=== PATIENT | female | born 1935 | race Two or more races ===

== ENCOUNTER 2018-08-29 21:50 | Inpatient (IN) | payer MEDICARE, MEDICAID ==
[~2018-08-29] VITALS: Ht 165.1 cm; Wt 67.7 kg
--- NOTE | 2018-08-29 22:10 | NUR ---
ED Nurse Note: Patient has back right flank pain for 1 week. Pt AO4. NAD. VSS. family at bedside.
[2018-08-29] MEDS ORDERED: LOSARTAN POTAS100 MG ORAL (22:17)
[2018-08-29] MEDS ORDERED: EMPAGLIFLOZIN (22:17)
[2018-08-29] MEDS ORDERED: JANUMET XR 50-1 EAC1 ORAL (22:17)
[2018-08-29] MEDS ORDERED: PLAVIX75 MG ORAL (22:17)
[2018-08-29] MEDS ORDERED: NEURONTIN300 MG ORAL (22:17)
[2018-08-29] MEDS ORDERED: ATORVASTATIN CA40 MG ORAL (22:17)
[2018-08-29] MEDS ORDERED: MAGNESIUM250 M3 PO (22:17)
[2018-08-29] MEDS ORDERED: DIOVAN320 MG ORAL (22:17)
[2018-08-29] MEDS ORDERED: AMLODIPINE BES2.5 MG ORAL (22:17)
--- NOTE | 2018-08-29 22:53 | NUR ---
ED Nurse Note: IV line access established. Blood drawn and urine collected; sent down to lab.
[2018-08-29] MEDS ORDERED: Ketorolac 30mg Inj IV ONE (23:00)
[2018-08-29 23:06] LABS: BASOPHILS % (AUTO) 1.4 % (0.0-2.0); EOSINOPHILS % (AUTO) 3.1 % (0.0-3.0); HEMATOCRIT 43.3 % (37.0-47.0); HEMOGLOBIN 14.1 G/DL (12.0-16.0); MEAN CORPUSCULAR VOLUME 92 FL (80-99); MONOCYTES % (AUTO) 7.1 % (1.0-10.0); NEUTROPHILS % (AUTO) 53.4 % (45.0-75.0); PLATELET COUNT 159 K/UL (150-450); RED BLOOD COUNT 4.69 M/UL (4.20-5.40); RED CELL DISTRIBUTION WIDTH 12.7 % (11.6-14.8); WHITE BLOOD COUNT 5.3 K/UL (4.8-10.8)
[2018-08-29 23:07] LABS: APPEARANCE,URINE SLIGHTLY CLOUDY; BILIRUBIN, URINE NEGATIVE (NEGATIVE); COLOR,URINE PALE YELLOW; GLUCOSE, URINE (UA) 4+ (NEGATIVE); KETONES,URINE NEGATIVE (NEGATIVE); LEUKOCYTE ESTERASE ,URINE 2+ (NEGATIVE); NITRITE,URINE POSITIVE (NEGATIVE); PH,URINE 6 (4.5-8.0); PROTEIN,URINE NEGATIVE (NEGATIVE); UROBILINOGEN,URINE NORMAL MG/DL (0.0-1.0)
[2018-08-29 23:19] LABS: ANION GAP 11 mmol/L (5-15); BLOOD UREA NITROGEN 27 mg/dL (7-18); CALCIUM 9.7 MG/DL (8.5-10.1); CARBON DIOXIDE 26 MMOL/L (21-32); CHLORIDE 105 MMOL/L (98-107); CREATININE 1.3 MG/DL (0.55-1.30); SODIUM 142 MMOL/L (136-145)
[2018-08-29 23:20] VITALS: BP 108/61
[2018-08-29 23:24] LABS: ALANINE AMINOTRANSFERASE 26 U/L (12-78); ALBUMIN 3.7 G/DL (3.4-5.0); ALBUMIN/GLOBULIN RATIO 1.1 (1.0-2.7); ALKALINE PHOSPHATASE 55 U/L (46-116); ASPARTATE AMINO TRANSFERASE 19 U/L (15-37); BILIRUBIN,TOTAL 0.3 MG/DL (0.2-1.0)
[2018-08-29] MEDS ORDERED: cefTRIAXone 1 GM in NS 55 ML IVPB ONE (23:30)
--- NOTE | 2018-08-30 00:44 | Emergency Room Report ---
History of Present Illness General Chief Complaint: Back Pain-No Injury Source: Patient Present Illness HPI Is an 82-year-old female with a history of CAD with previous stents. She presents with chief complaint of right flank pain. Onset for week now. She was seen by primary care last week and diagnosed with UTI. She was given Levaquin. She finished it and still having a lot of pain. Pain is 8 out of 10. Radiating to the groin. No nausea no vomiting. Nothing made it better. Nothing made it worse. Denies any other complaint. Allergies: Coded Allergies: PENICILLINS (Verified Allergy, Unknown, 08/29/18) Patient History Past Medical History: see triage record, old chart reviewed, HTN, CAD Past Surgical History: other Pertinent Family History: none Social History: Denies: smoking Last Menstrual Period: NA : 5 Para: 5 Immunizations: other Reviewed Nursing Documentation: PMH: Agreed; PSxH: Agreed Nursing Documentation-PMH Hx Cardiac Problems: Yes - STENT Hx Hypertension: Yes Hx Diabetes: Yes Review of Systems Eye: Denies: eye pain, blurred vision ENT: Denies: ear pain, nose congestion, throat swelling Respiratory: Denies: cough, shortness of breath Cardiovascular: Denies: chest pain, palpitations Gastrointestinal: Denies: abdominal pain, diarrhea, nausea, vomiting Musculoskeletal: Reports: back pain; Denies: joint pain Skin: Denies: rash Neurological: Denies: headache, numbness Endocrine: Denies: increased thirst, increased urine Hematologic/Lymphatic: Denies: easy bruising All Other Systems: negative except mentioned in HPI Physical Exam Vital Signs Date Time Temp Pulse Resp B/P (MAP) Pulse Ox O2 Delivery O2 Flow Rate FiO2 08/29/18 22:07 98.1 71 16 140/69 91 Room Air vitals with hypoxia. repeat oxygenation is 95% on room air Sp02 EP Interpretation: reviewed, normal General Appearance: well appearing, no apparent distress, alert Head: normocephalic, atraumatic Eyes: bilateral eye PERRL, bilateral eye EOMI ENT: hearing grossly normal, normal pharynx Neck: full range of motion, supple, no meningismus Respiratory: chest non-tender, lungs clear, normal breath sounds Cardiovascular #1: regular rate, rhythm, no murmur Gastrointestinal: normal bowel sounds, non tender, no mass, no organomegaly, no bruit, non-distended Genitourinary: CVA tenderness (R) Musculoskeletal: back normal, gait/station normal, normal range of motion Neurologic: alert, oriented x3 Psychiatric: mood/affect normal Skin: warm/dry Medical Decision Making Diagnostic Impression: Primary Impression: Pyelonephritis ER Course Patient presents with back pain and urine still showed UTI. CT scan is no evidence of any kidney stone. She because she failed outpatient antibiotics, will admit for IV antibiotics. I contacted Dr. Georges and Dr. Grace for admission. Lab Results Impression labs unremarkable CT/MRI/US Diagnostic Results CT/MRI/US Diagnostic Results : Imaging Test Ordered: CT abdomen and pelvis Impression no acute process per radiologist Last Vital Signs Date Time Temp Pulse Resp B/P (MAP) Pulse Ox O2 Delivery O2 Flow Rate FiO2 08/29/18 23:29 98.1 08/29/18 23:20 64 16 108/61 96 Room Air Status: improved Disposition: ADMITTED INPATIENT Condition: Serious Referrals: Sheldon Grace MD (PCP) Clif Ulloa MD Aug 30, 2018 00:44
--- NOTE | 2018-08-30 01:15 | NUR ---
TRANSFER TO FLOOR: Patient transferred to [place] [id number] as ordered, per MD José Manuel . Report given to JONEL Gonsales. Belongings and medications given to receiveing RN. Patient in stable condition.
[2018-08-30 01:30] VITALS: BP 136/71
--- NOTE | 2018-08-30 01:45 | NUR ---
NURSE NOTES: Received patient from ER via gurney by DIAPER MACHINE TENDERJONEL Duarte. Primary Dr Georges, Dx of Pyelonephritis. On RA, no SOB, no cute distress. Belongings checked, son by bedside taking all belongs home except pants, socks, and bra pt is wearing. RAC IV intact, patent. Oriented patient to surroundings. Bed in lowest position, locked, alarms on. Call light in reach. Will receive adm orders from Dr Georges.
[2018-08-30 04:00] VITALS: BP 122/63
[2018-08-30] MEDS ORDERED: Tylenol #3 tab (300mg/30mg) ORAL PRN (07:15)
--- NOTE | 2018-08-30 07:44 | NUR ---
HAND-OFF: Report given to Anette REMY.
[2018-08-30 08:00] VITALS: BP 141/78
[2018-08-30] MEDS: sitaGLIPtin 50mg tab ORAL SCH (08:00)
--- NOTE | 2018-08-30 08:07 | NUR ---
NURSE NOTES: Received report from Ilda REMY, Amna speaking pt a/a/o laying in bed with no signs of distress or other issues at this time. cardiac diet, she was able to tolerated well with no c/o of n/v. Iv on the R AC gauge#20 running 1/2NS@60ml/hr. call light within reach, bed in lowest position, side rales up x2.I will f/u as needed.
[2018-08-30] MEDS: Irbesartan 150mg tablet ORAL SCH (08:59)
[2018-08-30] MEDS: Losartan 50mg tab ORAL SCH (09:00)
[2018-08-30] MEDS: metFORMIN 500mg tab ORAL SCH ×2 (09:00→17:07)
[2018-08-30] MEDS: Meropenem 1 GM in NS 55 ML IVPB SCH ×2 (09:01→21:42)
[2018-08-30] MEDS: Heparin 5000 units/ml inj SUBQ SCH ×2 (09:02→21:44)
--- NOTE | 2018-08-30 10:34 | Diagnostic Imaging Report ---
Indication: Right flank pain Technique: Spiral acquisitions obtained through the abdomen and pelvis. No oral or IV contrast utilized, per urinary stone protocol. Multiplanar reconstructions were generated. Total dose length product 865.69 mGycm. CTDIvol(s) 15.03 mGy. Dose reduction achieved using automated exposure control Comparison: 09/04/2007 Findings: No renal or ureteral calculi, hydronephrosis, or hydroureter demonstrated. Likely contrast limits assessment of the solid organs. No gross renal parenchymal mass or cyst demonstrated. The bladder is unremarkable. Lack of IV contrast limits assessment of the other solid organs. The gallbladder is nondistended. The liver demonstrates dystrophic calcifications in segment 6. No biliary ductal dilatation. The pancreas, spleen, adrenals are unremarkable. 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 No retroperitoneal or mesenteric mass or adenopathy. No pelvic mass or adenopathy. The uterus is surgically absent. The appendix cannot be identified, as previously No evidence of diverticulosis or diverticulitis. No small bowel distention. No free or loculated intraperitoneal gas or fluid is evident. Distal esophagus, stomach, duodenum are unremarkable. The included lung bases demonstrate fairly extensive groundglass opacity. This appearance is similar to the previous exam, however. The bones demonstrate degenerative spondylosis changes. There is bilateral L5 spondylolysis with grade 1 L5 on S1 spondylolisthesis and secondary L5-S1 degenerative change. Impression: No evidence of acute urinary stone disease or obstructive uropathy No other acute abdominal or pelvic abnormality Extensive bilateral basilar pulmonary opacification. This could represent pulmonary edema, among other possibilities. 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 The CT scanner at [facility] is accredited by the [employer] and the scans are performed using protocols designed to limit radiation exposure to as low as reasonably achievable to attain images of sufficient resolution adequate for diagnostic evaluation.
[2018-08-30] MEDS: NovoLOG Insulin Flexpen SUBQ SCH ×3 (11:30→21:00)
[2018-08-30 12:00] VITALS: BP 111/53
--- NOTE | 2018-08-30 15:00 | Consultation ---
DATE OF CONSULTATION: 08/30/2018 INFECTIOUS DISEASES CONSULTATION: CONSULTING PHYSICIAN: Anjum Mcnally M.D. REFERRING PHYSICIAN: Christal Georges M.D. REASON FOR CONSULTATION: Urinary tract infection. HISTORY OF PRESENTING ILLNESS: This is an 82-year-old lady with history of coronary artery disease, status post stent placement who was found to have a urinary tract infection and she was given Levaquin, but still had a lot of pain. She has been admitted and an Infectious Diseases consultation has been obtained for urinary tract infection. PAST MEDICAL HISTORY: 1. History of hypertension. 2. Coronary artery disease status post stent placement. 3. History of diabetes. SOCIAL HISTORY: She does not smoke, drink, or use drugs. FAMILY HISTORY: Noncontributory. REVIEW OF SYSTEMS: RESPIRATORY: No fever, chills, cough, shortness of breath, or chest pain. CARDIAC: No chest pain. No palpitations. No dizziness. No syncope. GASTROINTESTINAL: No nausea. No vomiting. She does complain of abdominal pain and back pain. No diarrhea. MEDICATIONS: As an inpatient, she is on atorvastatin, gabapentin, insulin, amlodipine, clopidogrel, losartan, irbesartan, subcutaneous heparin, metformin, meropenem, Januvia, Tylenol No.3. ALLERGIES: She is allergic to penicillin. PHYSICAL EXAMINATION: VITAL SIGNS: Temperature of 98.1, T-max of 98.1, pulse of 63, respiratory rate 20, blood pressure 141/78, O2 saturation of 93%. HEENT: Pupils equally reactive to light and accommodation. Mouth appears clean without thrush. NECK: Supple. No adenopathy. No JVD. CARDIOVASCULAR: Regular rate and rhythm. No murmurs. LUNGS: Clear to auscultation bilaterally. No crackles. No wheezes. ABDOMEN: Soft. She does have suprapubic tenderness and right CVA tenderness. No organomegaly. EXTREMITIES: No cyanosis, no clubbing, no edema. LABORATORY DATA: Urine culture from [facility] lab growing more than 100,000 Klebsiella pneumoniae, which is susceptible to ertapenem, gentamicin, meropenem. White count 5.3, hemoglobin 14.1, hematocrit 43.3, MCV 92, platelet count of 159 with neutrophils of 53%. Sodium 142, potassium 4, chloride 105, bicarb 26, BUN 27, creatinine 1.3, glucose 148, calcium 9.7. Total bilirubin 0.3, AST 19, ALT 26, alkaline phosphatase 55. Total protein 7. Albumin 3.7. Lipase of 181. UA is showing 2 to 4 white cells. Urine cultures are pending. ASSESSMENT: This is an 82-year-old lady with history of diabetes, hypertension, coronary artery disease who comes in with. 1. Klebsiella ESBL urinary tract infection. 2. Diabetes. 3. Hypertension. PLAN: 1. Continue meropenem. 2. We will follow up cultures and adjust antibiotics accordingly. I would like to thank Dr. Georges for this consultation. Anjum Mcnally M.D. DR: BAYRON JOB#: [id number] CC: Christal Georges M.D.; Fax#: [phone]
[2018-08-30 16:00] VITALS: BP 116/58
--- NOTE | 2018-08-30 16:33 | NUR ---
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 98.0 HR 71 RR 16 B/P 140/69 BUN 27 UA+ NITRITE,LEUKOCYTE ESTERASE,WBC,BACTERIA IS: ROCEPHIN IV ADMITTED TO MED/SURG @ 0150 MED/SURG STATUS DCP RETURN HOME
--- NOTE | 2018-08-30 19:49 | NUR ---
HAND-OFF: Report given to Brandyn REMY, pt in stable condition.
--- NOTE | 2018-08-30 20:37 | General Progress Note ---
Progress Note Progress Note [id number] full note dictated Christal Georges MD Aug 30, 2018 20:37
[2018-08-30 20:45] VITALS: BP 126/75
[2018-08-30] MEDS: Atorvastatin 20mg tab ORAL SCH (21:42)
--- NOTE | 2018-08-30 22:45 | History and Physical Report ---
DATE OF ADMISSION: 08/30/2018 REASON FOR ADMISSION: Urinary tract infection. HISTORY OF PRESENT ILLNESS: The patient is an 82-year-old Farsi speaking female with past medical history significant for history of CAD, status post stent placement who basically has failed the outpatient treatment for urinary tract infection. Apparently, the patient had a urine culture as an outpatient, found to have basically only sensitive to Zosyn, which the patient is allergic to, also sensitive to . For that the patient was referred to emergency room. Currently, she is alert and awake. She denies having any dysuria, frequency, or hematuria, but she is complaining of severe right flank pain. She denies having any nausea or vomiting or any other problems. PAST MEDICAL HISTORY: Includin. History of hypertension. 2. History of CAD. 3. History of diabetes. SOCIAL HISTORY: She lives at home. There is no history of tobacco, alcohol, or drug use. FAMILY HISTORY: Noncontributory. HOME MEDICATIONS: Includin. Gabapentin. 2. Aspirin. 3. Atorvastatin. 4. Amlodipine. 5. Plavix. 6. Losartan. 7. Heparin. 8. Metformin. 9. Januvia. 10. Tylenol. ALLERGIES: She is allergic to penicillin. REVIEW OF SYSTEMS: GENERAL: She complained of generalized weakness. Denied any fever, chills, or night sweats. HEAD AND NECK: Denies any dysphagia, odynophagia, blurry vision, headache, or neck stiffness. PULMONARY: No shortness of breath. No cough or sputum. CARDIOVASCULAR: Denies any chest pain or palpitation. GASTROINTESTINAL: Denies any nausea or vomiting. Complaining of right flank pain, radiating to her groin. GENITOURINARY: Denies any dysuria, frequency, or hematuria. MUSCULOSKELETAL: Denies any weakness or numbness. PHYSICAL EXAMINATION: VITAL SIGNS: The patient has had temperature of 98 degrees, pulse of 63, respiratory rate of 20, and blood pressure of 141/78. HEAD AND NECK: No JVP. No LAD. No thyromegaly. Extraocular movement intact. Pupils are reactive to light and accommodation. LUNGS: Clear to auscultation. CARDIAC: Regular rate and rhythm. S1 and S2. No murmur. No rub. ABDOMEN: Soft, nontender, and nondistended. She is having CVA tenderness, suprapubic tenderness, and some guarding. No rebound. EXTREMITIES: No edema. No clubbing. No cyanosis. LABORATORY VALUES: WBC count of 5.3, hemoglobin of 14, hematocrit of 43, and platelet count of 159,000. Chemistry reveals sodium of 142, potassium of 4, chloride 105, bicarbonate 26, BUN 27, creatinine of 1.3, glucose of 148, and hemoglobin A1c of 7. AST of 19 and ALT of 26. Albumin of 3.7. UA revealed specific gravity of 1.015, glucose 4+, nitrite positive, leukocyte esterase 2+, wbc's of 2 to 4, and bacteria many. Urine culture revealed Klebsiella ESBL. ASSESSMENT: 1. Urinary tract infection with ESBL. 2. Diabetes. 3. Hypertension. 4. History of CAD. 5. Dyslipidemia. PLAN: Plan for the patient to obtain Infectious Disease consultation. Continue meropenem. Repeat IV antibiotics. Restart home medications. Christal Georges M.D. DR: MEE JOB#: [id number] CC:
--- NOTE | 2018-08-30 23:59 | Cardiology Progress Note ---
Assessment/Plan Assessment/Plan The patient is seen and examined, full consult note will be dictated. Objective Last 24 Hour Vital Signs Date Time Temp Pulse Resp B/P (MAP) Pulse Ox O2 Delivery O2 Flow Rate FiO2 08/30/18 20:45 98.3 66 19 126/75 (92) 92 08/30/18 16:00 98.7 66 18 116/58 (77) 96 08/30/18 12:00 98.4 62 20 111/53 (72) 96 08/30/18 09:00 Room Air 08/30/18 09:00 141/78 08/30/18 09:00 63 141/78 08/30/18 08:59 141/78 08/30/18 08:00 98.1 63 20 141/78 (99) 93 08/30/18 04:00 97.9 61 18 122/63 (82) 93 08/30/18 02:15 Room Air 08/30/18 01:30 98.2 62 20 136/71 (92) 92 08/30/18 01:15 98.1 64 16 108/61 96 Room Air Intake and Output 08/29/18 08/30/18 18:59 06:59 Intake Total 55 ml Balance 55 ml IV Total 55 ml # Voids 2 Laboratory Tests Test 08/30/18 08:30 Hemoglobin A1c 7.0 % (4.3-6.0) H Microbiology Date/Time Source Procedure Growth Status 08/29/18 22:53 Urine,Clean Catch Urine Culture - Preliminary Resulted Sheldon Grace MD Aug 30, 2018 23:59
[2018-08-31 00:41] VITALS: BP 129/69
--- NOTE | 2018-08-31 00:45 | NUR ---
NURSE NOTES: Pt lying in bed w/bed in lowest position and call light within reach. Pt Farsi speaking only, VSS, and in no apparent distress at this time. IV site intact/asymptomatic w/IVF @ 60 ml/hr and skin intact. Will continue to monitor.
--- NOTE | 2018-08-31 01:45 | Consultation ---
DATE OF CONSULTATION: 08/30/2018 CARDIOLOGY CONSULTATION CONSULTING PHYSICIAN: Sheldon Grace M.D. REFERRING PHYSICIAN: Dr. Christal Georges. REASON FOR CONSULTATION: Management of coronary artery disease. HISTORY OF PRESENT ILLNESS: The patient is a very unfortunate 82-year-old female with history of diabetes mellitus, hypertension, hyperlipidemia, and percutaneous coronary intervention who was admitted to the hospital with right flank pain secondary to urinary tract infection, not resolved with oral levofloxacin given in the outpatient setting. The patient had culture and sensitivity which revealed Klebsiella pneumoniae, sensitive to only meropenem, Zosyn, and no oral form of antibiotics. She is seen in Cardiology consultation as she has extensive history of coronary artery disease and history of PCI. At the time of her arrival to the hospital, her blood pressure was 140/69 and heart rate of 71. CT of abdomen and pelvis in the emergency department showed no acute processes. The patient was admitted to telemetry for further evaluation and management. Cardiology consultation was made at request of Dr. Georges for management of coronary artery disease. PAST MEDICAL HISTORY: Hypertension, diabetes mellitus, coronary artery disease, status post stent placement, and hyperlipidemia. PAST SURGICAL HISTORY: Percutaneous coronary intervention. FAMILY HISTORY: No premature coronary artery disease in first-degree relatives. SOCIAL HISTORY: Denies any tobacco, alcohol, or illicit drug use. MEDICATIONS: List of the medications at home. 1. Amlodipine 2.5 mg p.o. daily. 2. Atorvastatin 40 mg p.o. nightly. 3. Clopidogrel 75 mg daily. 4. Neurontin 300 mg at bedtime. 5. Losartan 100 mg p.o. daily. 6. Magnesium 250 mg p.o. daily. 7. Janumet 50-1000 daily. 8. ____ 325 mg p.o. daily. REVIEW OF SYSTEMS: HEENT: Denies any headache, diplopia, or blurred vision. Some constitutional complains of generalized weakness, but no fever, chills, or night sweats. CARDIOVASCULAR: Denies any chest pain, shortness breath, PND, orthopnea, or leg swelling. PULMONARY: Denies any cough, hemoptysis, or wheezing. GASTROINTESTINAL: Denies any nausea, vomiting, diarrhea, constipation, abdominal pain, or GI bleed. GENITOURINARY: Denies any hematuria, dysuria, or incontinence. Right flank pain is evident. NEUROLOGY: Denies any motor dysfunction, sensory deficit, or altered speech. PHYSICAL EXAMINATION: VITAL SIGNS: Blood pressure was 140/69, pulse of 71, respirations 16, temperature 98.1 degrees Fahrenheit, and O2 saturation ___% on room air. GENERAL: The patient is a very unfortunate 82-year-old female, in no apparent respiratory distress. HEENT: Atraumatic and normocephalic. Anicteric. Pupils are equal, round, and reactive to light and accommodation. Extraocular muscles intact. NECK: JVP is less than 5 cm. No carotid bruit. Carotid upstroke is 2+ bilaterally. CARDIOVASCULAR: Normal S1 and S2. Regular rate and rhythm. No murmurs, gallops, or rubs. PMI is at fourth intercostal space in the midclavicular line. LUNGS: Clear to auscultation bilaterally. ABDOMEN: Right flank tenderness. No hepatosplenomegaly. Soft. Positive bowel sounds. EXTREMITIES: No evidence of edema, clubbing, or cyanosis. LABORATORY FINDINGS: WBC was 5.3, hemoglobin of 14.1, hematocrit of 43.3, and platelet count 159,000. Sodium 142, potassium is 4.0, chloride 105, bicarbonate 26, BUN of 27, creatinine 1.3, glucose 148, and hemoglobin A1c 7.0. ASSESSMENT AND PLAN: The patient is a very unfortunate 82-year-old female, seen in Cardiology consultation. 1. Coronary artery disease, status post percutaneous coronary intervention. This appears to be stable. The patient is currently chest pain free. Continue with aspirin 81 mg daily, atorvastatin high-intensity as well as beta-blockers. No further cardiac intervention is required as the patient does not have any active coronary artery disease. 2. Possible active pyelonephritis with Klebsiella pneumoniae, resistant to all by mouth medication. She started on meropenem 1 g q.12 hours ____ the renal dose. ID consultation has been obtained. Of note, patient is allergic to penicillin and resistant to levofloxacin. 3. History of diabetes mellitus. The patient will be continued with aspirin and Plavix. I would like to thank, Dr. Georges, for allowing me to participate in the care of this patient. Sheldon Grace M.D. DR: SHAN JOB#: [id number] CC:
[2018-08-31 04:35] VITALS: BP 134/75
[2018-08-31] MEDS: NovoLOG Insulin Flexpen SUBQ SCH ×4 (06:29→20:21)
[2018-08-31] MEDS: sitaGLIPtin 50mg tab ORAL SCH (06:30)
--- NOTE | 2018-08-31 07:23 | NUR ---
HAND-OFF: Report given to JONEL Lundberg.
[2018-08-31 08:00] VITALS: BP 94/63
--- NOTE | 2018-08-31 08:24 | NUR ---
NURSE NOTES: Received report from Ina REMY, Amna speaking pt, a/a/o x4 with no signs of distress or other issues at this time. IV on the right AC gauge#20 running NS@60ml/hr. pt is able to ambulate with assistance. call light with in reach, bed in lowest position. side rales upx4. I will f/u as needed.
[2018-08-31] MEDS: Losartan 50mg tab ORAL SCH (09:00)
[2018-08-31] MEDS: Meropenem 1 GM in NS 55 ML IVPB SCH ×2 (09:00→20:15)
[2018-08-31] MEDS: Irbesartan 150mg tablet ORAL SCH (09:00)
[2018-08-31] MEDS: metFORMIN 500mg tab ORAL SCH ×2 (09:00→18:08)
[2018-08-31] MEDS: Heparin 5000 units/ml inj SUBQ SCH ×2 (09:02→20:20)
--- NOTE | 2018-08-31 11:32 | Infectious Diseases Prog Note ---
Assessment/Plan Assessment/Plan antibiotics : meropenem A 1. klebsiella UTI 2. diabetes mellitus 3. hypertension P 1. continue meropenem 2. will follow up cultures Subjective Constitutional: Denies: fever, chills Respiratory: Denies: shortness of breath, dry cough Gastrointestinal/Abdominal: Denies: nausea, vomiting, diarrhea Musculoskeletal: Reports: pain Allergies: Coded Allergies: PENICILLINS (Verified Allergy, Unknown, 08/29/18) Objective Vital Signs Last 24 Hour Vital Signs Date Time Temp Pulse Resp B/P (MAP) Pulse Ox O2 Delivery O2 Flow Rate FiO2 08/31/18 09:00 Room Air 08/31/18 08:00 97.4 64 18 94/63 (73) 96 08/31/18 04:35 98.3 73 17 134/75 (94) 97 08/31/18 00:41 98.2 69 18 129/69 (89) 91 08/30/18 21:00 Room Air 08/30/18 20:45 98.3 66 19 126/75 (92) 92 08/30/18 16:00 98.7 66 18 116/58 (77) 96 08/30/18 12:00 98.4 62 20 111/53 (72) 96 Height (Feet): 5 Height (Inches): 5.00 Weight (Pounds): 149 Respiratory/Chest: lungs clear Cardiovascular: normal rate, regular rhythm, no gallop/murmur Abdomen: soft, non tender, other - suprapubic and right CVA tenderness Extremities: no edema Microbiology Date/Time Source Procedure Growth Status 08/30/18 08:00 Urine,Clean Catch Urine Culture - Preliminary Gram Negative Bacillus 1 Resulted 08/29/18 22:53 Urine,Clean Catch Urine Culture - Preliminary Gram Negative Bacillus 1 Resulted Current Medications Medications (Trade) Dose Ordered Sig/Christina Route PRN Reason Start Time Stop Time Status Last Admin Dose Admin Acetaminophen/ Codeine Phosphate (Tylenol #3) 1 tab Q4H PRN ORAL Severe Pain (Pain Scale 7-10) 08/30/18 07:15 09/06/18 07:14 Amlodipine Besylate (Norvasc) 2.5 mg DAILY ORAL 08/30/18 09:00 09/29/18 08:59 08/30/18 09:00 Atorvastatin Calcium (Lipitor) 40 mg BEDTIME ORAL 08/30/18 21:00 09/29/18 20:59 08/30/18 21:42 Clopidogrel Bisulfate (Plavix) 75 mg DAILY ORAL 08/30/18 09:00 09/29/18 08:59 08/31/18 09:01 Dextrose (Dextrose 50%) 25 ml Q30M PRN IV Hypoglycemia 08/30/18 07:15 09/29/18 07:14 Dextrose (Dextrose 50%) 50 ml Q30M PRN IV Hypoglycemia 08/30/18 07:15 09/29/18 07:14 Gabapentin (Neurontin) 300 mg BEDTIME ORAL 08/30/18 21:00 09/29/18 20:59 08/30/18 21:42 Heparin Sodium (Porcine) (Heparin 5000 units/ml) 5,000 units EVERY 12 HOURS SUBQ 08/30/18 09:00 09/29/18 08:59 08/31/18 09:02 Insulin Aspart (NovoLOG) BEFORE MEALS AND HS SUBQ 08/30/18 11:30 09/29/18 11:29 08/30/18 17:08 Irbesartan (Avapro) 300 mg DAILY ORAL 08/30/18 09:00 09/29/18 08:59 08/30/18 08:59 Losartan Potassium (Cozaar) 100 mg DAILY ORAL 08/30/18 09:00 09/29/18 08:59 08/30/18 09:00 Meropenem 1 gm/ Sodium Chloride 55 ml @ 110 mls/hr Q12HR IVPB 08/30/18 09:00 09/04/18 08:59 08/31/18 09:00 Metformin HCl (Glucophage) 500 mg BID ORAL 08/30/18 09:00 09/29/18 08:59 08/31/18 09:00 Sitagliptin Phosphate (Januvia) 50 mg ACBREAKFAST ORAL 08/30/18 08:00 09/29/18 07:59 Sodium Chloride 1,000 ml @ 60 mls/hr [id number] IV 08/30/18 07:15 09/29/18 07:14 08/31/18 09:00 Anjum Mcnally MD Aug 31, 2018 11:32
[2018-08-31 12:00] VITALS: BP 133/68
[2018-08-31 16:00] VITALS: BP 118/66
--- NOTE | 2018-08-31 18:20 | Nephrology Progress Note ---
Assessment/Plan Assessment 1. Urinary tract infection with ESBL. 2. Diabetes. 3. Hypertension. 4. History of CAD. 5. Dyslipidemia. Plan plan iv antibiotic continue current med us of kidney Subjective Constitutional: Reports: no symptoms HEENT: Reports: no symptoms Genitourinary: Reports: other - right Subjective c/o right flank pain Objective Objective Last 24 Hour Vital Signs Date Time Temp Pulse Resp B/P (MAP) Pulse Ox O2 Delivery O2 Flow Rate FiO2 08/31/18 16:00 98.6 66 20 118/66 (83) 100 08/31/18 12:00 97.9 62 19 133/68 (89) 100 08/31/18 09:00 94/63 08/31/18 09:00 94/63 08/31/18 09:00 64 94/63 08/31/18 09:00 Room Air 08/31/18 08:00 97.4 64 18 94/63 (73) 96 08/31/18 04:35 98.3 73 17 134/75 (94) 97 08/31/18 00:41 98.2 69 18 129/69 (89) 91 08/30/18 21:00 Room Air 08/30/18 20:45 98.3 66 19 126/75 (92) 92 Intake and Output 08/30/18 08/31/18 19:00 07:00 Intake Total 1380 ml 720 ml Balance 1380 ml 720 ml Intake Oral 480 ml 360 ml IV Total 900 ml 360 ml # Voids 3 3 Height (Feet): 5 Height (Inches): 5.00 Weight (Pounds): 149 Objective HEAD AND NECK: No JVP. No LAD. No thyromegaly. Extraocular movement intact. Pupils are reactive to light and accommodation. LUNGS: Clear to auscultation. CARDIAC: Regular rate and rhythm. S1 and S2. No murmur. No rub. ABDOMEN: Soft, nontender, and nondistended. She is having CVA tenderness, suprapubic tenderness, and some guarding. No rebound. EXTREMITIES: No edema. No clubbing. No cyanosis. Christal Georges MD Aug 31, 2018 18:20
--- NOTE | 2018-08-31 19:41 | NUR ---
HAND-OFF: Report given to Elsie REMY. pt in stable condition.
--- NOTE | 2018-08-31 19:45 | NUR ---
NURSE NOTES: Patient received in bed, awake, oriented. IV intact and patent, IVF infusing. No acute distress. Call light within reach, will continue to monitor.
[2018-08-31 20:00] VITALS: BP 120/68
[2018-08-31] MEDS: Atorvastatin 20mg tab ORAL SCH (20:16)
--- NOTE | 2018-08-31 22:52 | Cardiology Progress Note ---
Assessment/Plan Assessment/Plan 1. Coronary artery disease, status post percutaneous coronary intervention. This appears to be stable. The patient is currently chest pain free. Continue with aspirin, atorvastatin and metoprolol. No further cardiac intervention is required as the patient does not have any active coronary artery disease. 2. Possible active pyelonephritis with Klebsiella pneumoniae, continue meropenem , follow up ID recs. 3. History of diabetes mellitus, continue aspirin and Plavix. Subjective Subjective No cardiac events noted. Objective Last 24 Hour Vital Signs Date Time Temp Pulse Resp B/P (MAP) Pulse Ox O2 Delivery O2 Flow Rate FiO2 08/31/18 21:00 Room Air 08/31/18 20:00 98.6 71 18 120/68 (85) 93 08/31/18 16:00 98.6 66 20 118/66 (83) 100 08/31/18 12:00 97.9 62 19 133/68 (89) 100 08/31/18 09:00 94/63 08/31/18 09:00 94/63 08/31/18 09:00 64 94/63 08/31/18 09:00 Room Air 08/31/18 08:00 97.4 64 18 94/63 (73) 96 08/31/18 04:35 98.3 73 17 134/75 (94) 97 08/31/18 00:41 98.2 69 18 129/69 (89) 91 Intake and Output 08/30/18 08/31/18 18:59 06:59 Intake Total 1305 ml 795 ml Balance 1305 ml 795 ml Intake Oral 480 ml 360 ml IV Total 825 ml 435 ml # Voids 3 3 Microbiology Date/Time Source Procedure Growth Status 08/30/18 08:00 Urine,Clean Catch Urine Culture - Preliminary Gram Negative Bacillus 1 Resulted 08/29/18 22:53 Urine,Clean Catch Urine Culture - Preliminary Gram Negative Bacillus 1 Resulted Objective HEENT: Atraumatic and normocephalic. Anicteric. Pupils are equal, round, and reactive to light and accommodation. Extraocular muscles intact. NECK: JVP is less than 5 cm. No carotid bruit. Carotid upstroke is 2+ bilaterally. CARDIOVASCULAR: Normal S1 and S2. Regular rate and rhythm. No murmurs, gallops, or rubs. PMI is at fourth intercostal space in the midclavicular line. LUNGS: Clear to auscultation bilaterally. ABDOMEN: Right flank tenderness. No hepatosplenomegaly. Soft. Positive bowel sounds. EXTREMITIES: No evidence of edema, clubbing, or cyanosis. Sheldon Grace MD Aug 31, 2018 22:52
[2018-09-01] VITALS (7 sets, daily range): BP systolic 121–137; BP diastolic 55–75
[2018-09-01] MEDS: sitaGLIPtin 50mg tab ORAL SCH (05:45)
[2018-09-01] MEDS: NovoLOG Insulin Flexpen SUBQ SCH ×5 (05:46→21:00)
--- NOTE | 2018-09-01 07:35 | NUR ---
NURSE NOTES: Report received from outgoing RN, rounds made. Patient alert, calm, Farsi speaking, semi-tsang position. IVF infusing to RAC, site asymptomatic. Patient denies pain/NV. Call light in reach, bed in lowest position. Will continue to assess.
--- NOTE | 2018-09-01 07:37 | NUR ---
HAND-OFF: Report given to Nataliia REMY.
--- NOTE | 2018-09-01 08:23 | Nephrology Progress Note ---
Assessment/Plan Assessment 1. Urinary tract infection with ESBL. 2. Diabetes. 3. Hypertension. 4. History of CAD. 5. Dyslipidemia. Plan plan d/c planing when is clear by ID iv antibiotic continue current med us of kidney Subjective Constitutional: Reports: no symptoms HEENT: Reports: no symptoms Genitourinary: Reports: no symptoms Neurologic/Psychiatric: Reports: no symptoms Subjective feeling better today suprapubic pain has improved Objective Objective Last 24 Hour Vital Signs Date Time Temp Pulse Resp B/P (MAP) Pulse Ox O2 Delivery O2 Flow Rate FiO2 09/01/18 04:00 98.0 64 20 122/55 (77) 91 09/01/18 00:00 98.2 65 20 134/73 (93) 91 08/31/18 21:00 Room Air 08/31/18 20:00 98.6 71 18 120/68 (85) 93 08/31/18 16:00 98.6 66 20 118/66 (83) 100 08/31/18 12:00 97.9 62 19 133/68 (89) 100 08/31/18 09:00 94/63 08/31/18 09:00 94/63 08/31/18 09:00 64 94/63 08/31/18 09:00 Room Air Intake and Output 08/31/18 09/01/18 19:00 07:00 Intake Total 720 ml 790 ml Balance 720 ml 790 ml Intake Oral 120 ml IV Total 720 ml 670 ml # Voids 3 Height (Feet): 5 Height (Inches): 5.00 Weight (Pounds): 149 Objective HEAD AND NECK: No JVP. No LAD. No thyromegaly. Extraocular movement intact. Pupils are reactive to light and accommodation. LUNGS: Clear to auscultation. CARDIAC: Regular rate and rhythm. S1 and S2. No murmur. No rub. ABDOMEN: Soft, nontender, and nondistended. She is having CVA tenderness, suprapubic tenderness, and some guarding. No rebound. EXTREMITIES: No edema. No clubbing. No cyanosis. Christal Georges MD Sep 01, 2018 08:23
[2018-09-01] MEDS: Meropenem 1 GM in NS 55 ML IVPB SCH ×2 (09:28→20:23)
[2018-09-01] MEDS: metFORMIN 500mg tab ORAL SCH ×2 (09:29→17:32)
[2018-09-01] MEDS: Heparin 5000 units/ml inj SUBQ SCH ×2 (09:30→20:24)
[2018-09-01] MEDS: Irbesartan 150mg tablet ORAL SCH (09:30)
[2018-09-01] MEDS: Losartan 50mg tab ORAL SCH (09:32)
--- NOTE | 2018-09-01 12:08 | Infectious Diseases Prog Note ---
Assessment/Plan Assessment/Plan A 1. klebsiella UTI, MDR 2. diabetes mellitus 3. hypertension P 1. continue meropenem 2. will follow up cultures Subjective ROS Limited/Unobtainable: No Constitutional: Reports: no symptoms Respiratory: Reports: no symptoms Cardiovascular: Reports: no symptoms Gastrointestinal/Abdominal: Reports: no symptoms Genitourinary: Reports: other - R flank pain Neurologic: Reports: no symptoms Allergies: Coded Allergies: PENICILLINS (Verified Allergy, Unknown, 08/29/18) Objective Vital Signs Last 24 Hour Vital Signs Date Time Temp Pulse Resp B/P (MAP) Pulse Ox O2 Delivery O2 Flow Rate FiO2 09/01/18 09:32 128/75 09/01/18 09:30 128/75 09/01/18 09:28 74 128/75 09/01/18 09:00 Room Air 09/01/18 08:00 97.9 74 18 128/75 (92) 96 09/01/18 04:00 98.0 64 20 122/55 (77) 91 09/01/18 00:00 98.2 65 20 134/73 (93) 91 08/31/18 21:00 Room Air 08/31/18 20:00 98.6 71 18 120/68 (85) 93 08/31/18 16:00 98.6 66 20 118/66 (83) 100 Height (Feet): 5 Height (Inches): 5.00 Weight (Pounds): 149 General Appearance: no acute distress HEENT: mucous membranes moist Respiratory/Chest: lungs clear Cardiovascular: normal rate Abdomen: other - soft, right flank tenderness Extremities: no edema Neurologic/Psychiatric: alert, oriented x 3, responsive Microbiology Date/Time Source Procedure Growth Status 08/30/18 08:00 Urine,Clean Catch Urine Culture - Final Klebsiella Pneumoniae Esbl Complete 08/29/18 22:53 Urine,Clean Catch Urine Culture - Final Klebsiella Pneumoniae Esbl Complete Current Medications Medications (Trade) Dose Ordered Sig/Christina Route PRN Reason Start Time Stop Time Status Last Admin Dose Admin Acetaminophen/ Codeine Phosphate (Tylenol #3) 1 tab Q4H PRN ORAL Severe Pain (Pain Scale 7-10) 08/30/18 07:15 09/06/18 07:14 Amlodipine Besylate (Norvasc) 2.5 mg DAILY ORAL 08/30/18 09:00 09/29/18 08:59 09/01/18 09:28 Atorvastatin Calcium (Lipitor) 40 mg BEDTIME ORAL 08/30/18 21:00 09/29/18 20:59 08/31/18 20:16 Clopidogrel Bisulfate (Plavix) 75 mg DAILY ORAL 08/30/18 09:00 09/29/18 08:59 09/01/18 09:28 Dextrose (Dextrose 50%) 25 ml Q30M PRN IV Hypoglycemia 08/30/18 07:15 09/29/18 07:14 Dextrose (Dextrose 50%) 50 ml Q30M PRN IV Hypoglycemia 08/30/18 07:15 09/29/18 07:14 Gabapentin (Neurontin) 300 mg BEDTIME ORAL 08/30/18 21:00 09/29/18 20:59 08/31/18 20:16 Heparin Sodium (Porcine) (Heparin 5000 units/ml) 5,000 units EVERY 12 HOURS SUBQ 08/30/18 09:00 09/29/18 08:59 09/01/18 09:30 Insulin Aspart (NovoLOG) BEFORE MEALS AND HS SUBQ 08/30/18 11:30 09/29/18 11:29 08/30/18 17:08 Irbesartan (Avapro) 300 mg DAILY ORAL 08/30/18 09:00 09/29/18 08:59 09/01/18 09:30 Losartan Potassium (Cozaar) 100 mg DAILY ORAL 08/30/18 09:00 09/29/18 08:59 09/01/18 09:32 Meropenem 1 gm/ Sodium Chloride 55 ml @ 110 mls/hr Q12HR IVPB 08/30/18 09:00 09/04/18 08:59 09/01/18 09:28 Metformin HCl (Glucophage) 500 mg BID ORAL 08/30/18 09:00 09/29/18 08:59 09/01/18 09:29 Sitagliptin Phosphate (Januvia) 50 mg ACBREAKFAST ORAL 08/30/18 08:00 09/29/18 07:59 09/01/18 05:45 Sodium Chloride 1,000 ml @ 60 mls/hr [id number] IV 08/30/18 07:15 09/29/18 07:14 09/01/18 02:08 Harsh Srinivasan MD Sep 01, 2018 12:08
--- NOTE | 2018-09-01 19:30 | NUR ---
HAND-OFF: Report given to Reina REMY.
--- NOTE | 2018-09-01 19:41 | NUR ---
NURSE NOTES: Patient received in bed, awake, oriented. IV intact and patent. No s/s pain or distress noted. Call light within reach, bed lowest position, will continue to monitor.
[2018-09-01] MEDS: Atorvastatin 20mg tab ORAL SCH (20:23)
--- NOTE | 2018-09-01 20:41 | Cardiology Progress Note ---
Assessment/Plan Assessment/Plan 1. Coronary artery disease, status post percutaneous coronary intervention, stable, chest pain free. Continue with aspirin, atorvastatin and metoprolol. 2. Possible active pyelonephritis with Klebsiella pneumoniae, continue meropenem , follow up ID recs. 3. History of diabetes mellitus, continue aspirin and Plavix. Subjective Subjective No cardiac events noted. Stable from cardiac standpoint. Objective Last 24 Hour Vital Signs Date Time Temp Pulse Resp B/P (MAP) Pulse Ox O2 Delivery O2 Flow Rate FiO2 09/01/18 19:46 98.9 74 18 128/59 (82) 95 09/01/18 16:00 97.8 67 18 137/68 (91) 96 09/01/18 12:00 97.7 65 18 121/74 (90) 96 09/01/18 09:32 128/75 09/01/18 09:30 128/75 09/01/18 09:28 74 128/75 09/01/18 09:00 Room Air 09/01/18 08:00 97.9 74 18 128/75 (92) 96 09/01/18 04:00 98.0 64 20 122/55 (77) 91 09/01/18 00:00 98.2 65 20 134/73 (93) 91 08/31/18 21:00 Room Air Intake and Output 08/31/18 09/01/18 19:00 07:00 Intake Total 720 ml 850 ml Balance 720 ml 850 ml Intake Oral 120 ml IV Total 720 ml 730 ml # Voids 3 Microbiology Date/Time Source Procedure Growth Status 08/30/18 08:00 Urine,Clean Catch Urine Culture - Final Klebsiella Pneumoniae Esbl Complete 08/29/18 22:53 Urine,Clean Catch Urine Culture - Final Klebsiella Pneumoniae Esbl Complete Objective HEENT: Atraumatic and normocephalic. Anicteric. Pupils are equal, round, and reactive to light and accommodation. Extraocular muscles intact. NECK: JVP is less than 5 cm. No carotid bruit. Carotid upstroke is 2+ bilaterally. CARDIOVASCULAR: Normal S1 and S2. Regular rate and rhythm. No murmurs, gallops, or rubs. PMI is at fourth intercostal space in the midclavicular line. LUNGS: Clear to auscultation bilaterally. ABDOMEN: No flank tenderness. No hepatosplenomegaly. Soft. Positive bowel sounds. EXTREMITIES: No evidence of edema, clubbing, or cyanosis. Sheldon Grace MD Sep 01, 2018 20:41
[2018-09-01] MEDS ORDERED: BYDUREON2 MG SUBQ (20:48)
--- NOTE | 2018-09-01 20:55 | NUR ---
NURSE NOTES: Patient's son at bedside. When nurse was about to give patient Novolog medication per sliding scale, patient's son stated that patient does not take it at home and that Dr. Grace had prescribed Bydureon 2 mg subq once a week and he wanted nurse to clarify with MD. Nurse did not give the Novolog to patient and undid the Novolog administration. Called and left message for Dr. Grace, awaiting response. Charge nurse aware.
--- NOTE | 2018-09-01 21:35 | NUR ---
NURSE NOTES: Received call back from Dr. Grace and received order to D/C Novolog scale and for Metformin 1,000 mg PO BID. Orders carried out. Charge nurse made aware.
[2018-09-02 04:04] VITALS: BP 114/57
[2018-09-02] MEDS: sitaGLIPtin 50mg tab ORAL SCH (05:57)
--- NOTE | 2018-09-02 07:10 | NUR ---
HAND-OFF: Report given to BERNADETTE Marinelli RN.
--- NOTE | 2018-09-02 07:15 | NUR ---
NURSE NOTES: Report received from outgoing RN, rounds made. Patient is Farsi speaking. Patient resting in right lateral/supine position in bed. Calm, no distress or complains of pain/NV. IVF infusing to RAC without difficulty, site asymptomatic. Bed in lowest position, call light in reach. Will continue to assess.
[2018-09-02 08:00] VITALS: BP 124/74
[2018-09-02] MEDS: Meropenem 1 GM in NS 55 ML IVPB SCH ×2 (09:00→21:22)
[2018-09-02] MEDS: metFORMIN 500mg tab ORAL SCH ×2 (09:04→17:28)
[2018-09-02] MEDS: Irbesartan 150mg tablet ORAL SCH (09:04)
[2018-09-02] MEDS: Losartan 50mg tab ORAL SCH (09:05)
[2018-09-02] MEDS: Heparin 5000 units/ml inj SUBQ SCH (09:06)
--- NOTE | 2018-09-02 10:42 | Infectious Diseases Prog Note ---
Assessment/Plan Assessment/Plan antibiotics : meropenem A 1. klebsiella UTI 2. diabetes mellitus 3. hypertension P 1. continue meropenem 3 more days 2. will follow up cultures Subjective Constitutional: Denies: fever, chills Respiratory: Denies: shortness of breath, dry cough Gastrointestinal/Abdominal: Denies: nausea, vomiting, diarrhea Musculoskeletal: Reports: pain - decreasing Allergies: Coded Allergies: PENICILLINS (Verified Allergy, Unknown, 08/29/18) Objective Vital Signs Last 24 Hour Vital Signs Date Time Temp Pulse Resp B/P (MAP) Pulse Ox O2 Delivery O2 Flow Rate FiO2 09/02/18 09:05 124/74 09/02/18 09:05 84 124/74 09/02/18 09:04 124/74 09/02/18 09:00 Room Air 09/02/18 08:00 98.1 84 18 124/74 (91) 97 09/02/18 04:04 98.3 70 18 114/57 (76) 95 09/01/18 23:54 98.3 72 18 136/61 (86) 95 09/01/18 21:02 Room Air 09/01/18 19:46 98.9 74 18 128/59 (82) 95 09/01/18 16:00 97.8 67 18 137/68 (91) 96 09/01/18 12:00 97.7 65 18 121/74 (90) 96 Height (Feet): 5 Height (Inches): 5.00 Weight (Pounds): 149 Current Medications Medications (Trade) Dose Ordered Sig/Christina Route PRN Reason Start Time Stop Time Status Last Admin Dose Admin Acetaminophen/ Codeine Phosphate (Tylenol #3) 1 tab Q4H PRN ORAL Severe Pain (Pain Scale 7-10) 08/30/18 07:15 09/06/18 07:14 Amlodipine Besylate (Norvasc) 2.5 mg DAILY ORAL 08/30/18 09:00 09/29/18 08:59 09/02/18 09:05 Atorvastatin Calcium (Lipitor) 40 mg BEDTIME ORAL 08/30/18 21:00 09/29/18 20:59 09/01/18 20:23 Clopidogrel Bisulfate (Plavix) 75 mg DAILY ORAL 08/30/18 09:00 09/29/18 08:59 09/02/18 09:05 Dextrose (Dextrose 50%) 25 ml Q30M PRN IV Hypoglycemia 08/30/18 07:15 09/29/18 07:14 Dextrose (Dextrose 50%) 50 ml Q30M PRN IV Hypoglycemia 08/30/18 07:15 09/29/18 07:14 Gabapentin (Neurontin) 300 mg BEDTIME ORAL 08/30/18 21:00 09/29/18 20:59 09/01/18 20:23 Heparin Sodium (Porcine) (Heparin 5000 units/ml) 5,000 units EVERY 12 HOURS SUBQ 08/30/18 09:00 09/29/18 08:59 09/02/18 09:06 Irbesartan (Avapro) 300 mg DAILY ORAL 08/30/18 09:00 09/29/18 08:59 09/02/18 09:04 Losartan Potassium (Cozaar) 100 mg DAILY ORAL 08/30/18 09:00 09/29/18 08:59 09/02/18 09:05 Meropenem 1 gm/ Sodium Chloride 55 ml @ 110 mls/hr Q12HR IVPB 08/30/18 09:00 09/04/18 08:59 09/02/18 09:00 Metformin HCl (Glucophage) 1,000 mg BID ORAL 09/02/18 09:00 09/29/18 08:59 09/02/18 09:04 Sitagliptin Phosphate (Januvia) 50 mg ACBREAKFAST ORAL 08/30/18 08:00 09/29/18 07:59 09/02/18 05:57 Sodium Chloride 1,000 ml @ 60 mls/hr [id number] IV 08/30/18 07:15 09/29/18 07:14 09/01/18 19:03 Anjum Mcnally MD Sep 02, 2018 10:42
[2018-09-02 12:00] VITALS: BP 112/55
--- NOTE | 2018-09-02 12:00 | NUR ---
NURSE NOTES: Patient resting in bed. Blood sugar assessed as ordered, 95 mg/dl, no s/s of hypoglycemia, tolerating lunch tray at this time. Left lateral middle finger skin tear, covered with dry 4x4 gauze and secured with paper tape, clean/dry/intact, denies pain to site. Will continue to assess.
--- NOTE | 2018-09-02 12:39 | Nephrology Progress Note ---
Assessment/Plan Assessment 1. Urinary tract infection with ESBL. 2. Diabetes. 3. Hypertension. 4. History of CAD. 5. Dyslipidemia. Plan plan continue imipenem for total of 7 days continue current med Subjective Constitutional: Reports: no symptoms HEENT: Reports: no symptoms Genitourinary: Reports: no symptoms Neurologic/Psychiatric: Reports: no symptoms Subjective feeling better today suprapubic pain has improved Objective Objective Last 24 Hour Vital Signs Date Time Temp Pulse Resp B/P (MAP) Pulse Ox O2 Delivery O2 Flow Rate FiO2 09/02/18 12:00 98.4 66 18 112/55 (74) 97 09/02/18 09:05 124/74 09/02/18 09:05 84 124/74 09/02/18 09:04 124/74 09/02/18 09:00 Room Air 09/02/18 08:00 98.1 84 18 124/74 (91) 97 09/02/18 04:04 98.3 70 18 114/57 (76) 95 09/01/18 23:54 98.3 72 18 136/61 (86) 95 09/01/18 21:02 Room Air 09/01/18 19:46 98.9 74 18 128/59 (82) 95 09/01/18 16:00 97.8 67 18 137/68 (91) 96 Intake and Output 09/01/18 09/02/18 19:00 07:00 Intake Total 650 ml 835 ml Balance 650 ml 835 ml Intake Oral 590 ml 120 ml IV Total 60 ml 715 ml # Voids 5 3 Height (Feet): 5 Height (Inches): 5.00 Weight (Pounds): 149 Objective HEAD AND NECK: No JVP. No LAD. No thyromegaly. Extraocular movement intact. Pupils are reactive to light and accommodation. LUNGS: Clear to auscultation. CARDIAC: Regular rate and rhythm. S1 and S2. No murmur. No rub. ABDOMEN: Soft, nontender, and nondistended. She is having CVA tenderness, suprapubic tenderness, and some guarding. No rebound. EXTREMITIES: No edema. No clubbing. No cyanosis. Christal Georges MD Sep 02, 2018 12:39
--- NOTE | 2018-09-02 12:41 | NUR ---
NURSE NOTES: Discussed with Dr. Georges, that patient is ambulatory to bathroom with stand by assist, orders to discontinue Heparin subcutaneous, see orders.
[2018-09-02 16:00] VITALS: BP 128/66
[2018-09-02] MEDS ORDERED: Tubing IV Secondary IV ONE (17:10)
[2018-09-02] MEDS ORDERED: 1/2 NS 1000ml IV ONE (17:10)
--- NOTE | 2018-09-02 19:45 | NUR ---
HAND-OFF: Report given to Sharonda REMY.
[2018-09-02 20:00] VITALS: BP 132/75
[2018-09-02] MEDS: Atorvastatin 20mg tab ORAL SCH (21:22)
--- NOTE | 2018-09-02 21:52 | NUR ---
NURSE NOTES: Patient is aaox4. No signs of distress. IV fluids running. Due meds given, needs attended to. Bed low, call light within reach. Family at bedside.
--- NOTE | 2018-09-02 22:03 | Cardiology Progress Note ---
Assessment/Plan Assessment/Plan 1. Coronary artery disease, status post percutaneous coronary intervention, stable, chest pain free. Continue with aspirin, atorvastatin and metoprolol. 2. Possible active pyelonephritis with Klebsiella pneumoniae, continue meropenem , follow up ID recs. 3. History of diabetes mellitus, continue aspirin and Plavix. Subjective Subjective No cardiac events noted. Denies chest pain or SOB. Objective Last 24 Hour Vital Signs Date Time Temp Pulse Resp B/P (MAP) Pulse Ox O2 Delivery O2 Flow Rate FiO2 09/02/18 16:00 97.8 73 18 128/66 (86) 98 09/02/18 12:00 98.4 66 18 112/55 (74) 97 09/02/18 09:05 124/74 09/02/18 09:05 84 124/74 09/02/18 09:04 124/74 09/02/18 09:00 Room Air 09/02/18 08:00 98.1 84 18 124/74 (91) 97 09/02/18 04:04 98.3 70 18 114/57 (76) 95 09/01/18 23:54 98.3 72 18 136/61 (86) 95 Intake and Output 09/01/18 09/02/18 19:00 07:00 Intake Total 650 ml 835 ml Balance 650 ml 835 ml Intake Oral 590 ml 120 ml IV Total 60 ml 715 ml # Voids 5 3 Objective HEENT: Atraumatic and normocephalic. Anicteric. Pupils are equal, round, and reactive to light and accommodation. Extraocular muscles intact. NECK: JVP is less than 5 cm. No carotid bruit. Carotid upstroke is 2+ bilaterally. CARDIOVASCULAR: Normal S1 and S2. Regular rate and rhythm. No murmurs, gallops, or rubs. PMI is at fourth intercostal space in the midclavicular line. LUNGS: Clear to auscultation bilaterally. ABDOMEN: No flank tenderness. No hepatosplenomegaly. Soft. Positive bowel sounds. EXTREMITIES: No evidence of edema, clubbing, or cyanosis. Sheldon Grace MD Sep 02, 2018 22:03
[2018-09-03] VITALS: BP 156/70
[2018-09-03 04:00] VITALS: BP 123/77
[2018-09-03] MEDS: sitaGLIPtin 50mg tab ORAL SCH (06:34)
--- NOTE | 2018-09-03 07:15 | NUR ---
NURSE NOTES: Report received from outgoing RN, rounds made. Patient up to bathroom, stable, calm. Patient denies pain/NV/SOB. IVF infusing to RAC as ordered, site asymptomatic. Will continue to assess.
--- NOTE | 2018-09-03 07:26 | NUR ---
HAND-OFF: Report given to JONEL William. Patient stable.
[2018-09-03 08:00] VITALS: BP 110/63
[2018-09-03] MEDS: Meropenem 1 GM in NS 55 ML IVPB SCH ×2 (09:49→21:18)
[2018-09-03] MEDS: metFORMIN 500mg tab ORAL SCH ×2 (09:50→17:52)
[2018-09-03] MEDS: Irbesartan 150mg tablet ORAL SCH (09:51)
[2018-09-03] MEDS: Losartan 50mg tab ORAL SCH (09:51)
--- NOTE | 2018-09-03 11:23 | Infectious Diseases Prog Note ---
Assessment/Plan Assessment/Plan antibiotics : meropenem A 1. klebsiella UTI 2. diabetes mellitus 3. hypertension P 1. continue meropenem 2 more days 2. will follow up cultures Subjective Constitutional: Denies: fever, chills Respiratory: Denies: shortness of breath, dry cough Gastrointestinal/Abdominal: Denies: nausea, vomiting, diarrhea Musculoskeletal: Reports: pain - decreased Allergies: Coded Allergies: PENICILLINS (Verified Allergy, Unknown, 08/29/18) Objective Vital Signs Last 24 Hour Vital Signs Date Time Temp Pulse Resp B/P (MAP) Pulse Ox O2 Delivery O2 Flow Rate FiO2 09/03/18 09:51 110/63 09/03/18 09:51 110/63 09/03/18 09:50 73 110/63 09/03/18 09:00 Room Air 09/03/18 08:00 97.7 73 18 110/63 (79) 95 09/03/18 04:00 98.0 89 17 123/77 (92) 96 09/03/18 00:00 98.1 73 17 156/70 (98) 96 09/02/18 21:00 Room Air 09/02/18 20:00 98.7 77 17 132/75 (94) 96 09/02/18 16:00 97.8 73 18 128/66 (86) 98 09/02/18 12:00 98.4 66 18 112/55 (74) 97 Height (Feet): 5 Height (Inches): 5.00 Weight (Pounds): 149 Respiratory/Chest: lungs clear Cardiovascular: normal rate, regular rhythm, no gallop/murmur Abdomen: tender - suprapubic and right CVA Extremities: no edema Current Medications Medications (Trade) Dose Ordered Sig/Christina Route PRN Reason Start Time Stop Time Status Last Admin Dose Admin Acetaminophen/ Codeine Phosphate (Tylenol #3) 1 tab Q4H PRN ORAL Severe Pain (Pain Scale 7-10) 08/30/18 07:15 09/06/18 07:14 Amlodipine Besylate (Norvasc) 2.5 mg DAILY ORAL 08/30/18 09:00 09/29/18 08:59 09/03/18 09:50 Atorvastatin Calcium (Lipitor) 40 mg BEDTIME ORAL 08/30/18 21:00 09/29/18 20:59 09/02/18 21:22 Clopidogrel Bisulfate (Plavix) 75 mg DAILY ORAL 08/30/18 09:00 09/29/18 08:59 09/03/18 09:49 Dextrose (Dextrose 50%) 25 ml Q30M PRN IV Hypoglycemia 08/30/18 07:15 09/29/18 07:14 Dextrose (Dextrose 50%) 50 ml Q30M PRN IV Hypoglycemia 08/30/18 07:15 09/29/18 07:14 Gabapentin (Neurontin) 300 mg BEDTIME ORAL 08/30/18 21:00 09/29/18 20:59 09/02/18 21:22 Irbesartan (Avapro) 300 mg DAILY ORAL 08/30/18 09:00 09/29/18 08:59 09/03/18 09:51 Losartan Potassium (Cozaar) 100 mg DAILY ORAL 08/30/18 09:00 09/29/18 08:59 09/03/18 09:51 Meropenem 1 gm/ Sodium Chloride 55 ml @ 110 mls/hr Q12HR IVPB 08/30/18 09:00 09/05/18 23:59 09/03/18 09:49 Metformin HCl (Glucophage) 1,000 mg BID ORAL 09/02/18 09:00 09/29/18 08:59 09/03/18 09:50 Sitagliptin Phosphate (Januvia) 50 mg ACBREAKFAST ORAL 08/30/18 08:00 09/29/18 07:59 09/03/18 06:34 Sodium Chloride 1,000 ml @ 60 mls/hr [id number] IV 08/30/18 07:15 09/29/18 07:14 09/02/18 11:50 Anjum Mcnally MD Sep 03, 2018 11:23
[2018-09-03 12:00] VITALS: BP 114/65
[2018-09-03] MEDS ORDERED: 1/2 NS 1000ml IV ONE (14:08)
--- NOTE | 2018-09-03 15:17 | Nephrology Progress Note ---
Assessment/Plan Assessment 1. Urinary tract infection with ESBL. 2. Diabetes. 3. Hypertension. 4. History of CAD. 5. Dyslipidemia. Plan plan continue imipenem for total of 7 days continue current med Subjective Constitutional: Reports: no symptoms HEENT: Reports: no symptoms Genitourinary: Reports: no symptoms Neurologic/Psychiatric: Reports: no symptoms Subjective feeling better today suprapubic pain has improved Objective Objective Last 24 Hour Vital Signs Date Time Temp Pulse Resp B/P (MAP) Pulse Ox O2 Delivery O2 Flow Rate FiO2 09/03/18 12:00 97.9 70 20 114/65 (81) 92 09/03/18 09:51 110/63 09/03/18 09:51 110/63 09/03/18 09:50 73 110/63 09/03/18 09:00 Room Air 09/03/18 08:00 97.7 73 18 110/63 (79) 95 09/03/18 04:00 98.0 89 17 123/77 (92) 96 09/03/18 00:00 98.1 73 17 156/70 (98) 96 09/02/18 21:00 Room Air 09/02/18 20:00 98.7 77 17 132/75 (94) 96 09/02/18 16:00 97.8 73 18 128/66 (86) 98 Intake and Output 09/02/18 09/03/18 19:00 07:00 Intake Total 2596 ml 720 ml Balance 2596 ml 720 ml Intake Oral 1936 ml IV Total 660 ml 720 ml # Voids 6 # Bowel Movements 1 Height (Feet): 5 Height (Inches): 5.00 Weight (Pounds): 149 Objective HEAD AND NECK: No JVP. No LAD. No thyromegaly. Extraocular movement intact. Pupils are reactive to light and accommodation. LUNGS: Clear to auscultation. CARDIAC: Regular rate and rhythm. S1 and S2. No murmur. No rub. ABDOMEN: Soft, nontender, and nondistended. She is having CVA tenderness, suprapubic tenderness, and some guarding. No rebound. EXTREMITIES: No edema. No clubbing. No cyanosis. Christal Georges MD Sep 03, 2018 15:17
[2018-09-03 16:00] VITALS: BP 122/61
--- NOTE | 2018-09-03 17:50 | NUR ---
NURSE NOTES: Patient stable, calm throughout shift. Vitals stable, afebrile. No s/s of hypoglycemia, Accu checks done AC/HS. 1130=87 mg/dl and 7313=456 mg/dl. Encouraged PO intake. Appetite good. No NV. Bilateral lower extremities/pedal skin intact, no redness/swelling noted. Left middle finger remains wrapped with dry gauze, no drainage noted. IVF continue to RAC, without difficulty, dry blood around IV catheter, no s/s of swelling/redness. Discharge plans for Wednesday after morning dose of Meropenum is given per Dr. Georges (patient needs 7 days total of antibiotic). BSC provided for safety. Will continue to monitor.
--- NOTE | 2018-09-03 19:35 | NUR ---
HAND-OFF: Report given to Liliya REMY.
[2018-09-03 20:00] VITALS: BP 129/71
[2018-09-03] MEDS: Atorvastatin 20mg tab ORAL SCH (21:17)
--- NOTE | 2018-09-03 21:42 | NUR ---
NURSE NOTES: Patient in bed, aox4. VSS, no signs of distress. IV fluids running. Due meds given, needs attended to. Bed low, call light within reach.
[2018-09-04] VITALS: BP 121/46
--- NOTE | 2018-09-04 00:17 | Cardiology Progress Note ---
Assessment/Plan Assessment/Plan LATE NOTE ENTRY: DOS: Sep 03, 2018 TIME: 22:12 1. Coronary artery disease, status post percutaneous coronary intervention, stable, chest pain free. Continue with aspirin, atorvastatin and metoprolol. 2. Possible active pyelonephritis with Klebsiella pneumoniae, continue meropenem , follow up ID recs. 3. History of diabetes mellitus, continue aspirin and Plavix. Subjective Subjective Denies chest pain or SOB. Objective Last 24 Hour Vital Signs Date Time Temp Pulse Resp B/P (MAP) Pulse Ox O2 Delivery O2 Flow Rate FiO2 09/03/18 21:00 Room Air 09/03/18 20:00 98.6 75 19 129/71 (90) 98 09/03/18 16:00 98.0 71 20 122/61 (81) 92 09/03/18 12:00 97.9 70 20 114/65 (81) 92 09/03/18 09:51 110/63 09/03/18 09:51 110/63 09/03/18 09:50 73 110/63 09/03/18 09:00 Room Air 09/03/18 08:00 97.7 73 18 110/63 (79) 95 09/03/18 04:00 98.0 89 17 123/77 (92) 96 Intake and Output 09/03/18 09/04/18 19:00 07:00 Intake Total 618 ml 60 ml Balance 618 ml 60 ml Intake Oral 558 ml IV Total 60 ml 60 ml # Voids 4 Objective HEENT: Atraumatic and normocephalic. Anicteric. Pupils are equal, round, and reactive to light and accommodation. Extraocular muscles intact. NECK: JVP is less than 5 cm. No carotid bruit. Carotid upstroke is 2+ bilaterally. CARDIOVASCULAR: Normal S1 and S2. Regular rate and rhythm. No murmurs, gallops, or rubs. PMI is at fourth intercostal space in the midclavicular line. LUNGS: Clear to auscultation bilaterally. ABDOMEN: No flank tenderness. No hepatosplenomegaly. Soft. Positive bowel sounds. EXTREMITIES: No evidence of edema, clubbing, or cyanosis. Sheldon Grace MD Sep 04, 2018 00:17
[2018-09-04 04:00] VITALS: BP 129/57
[2018-09-04] MEDS: sitaGLIPtin 50mg tab ORAL SCH (06:24)
--- NOTE | 2018-09-04 07:36 | NUR ---
HAND-OFF: Report given to JONEL William. Patient stable.
--- NOTE | 2018-09-04 07:40 | NUR ---
NURSE NOTES: Report received from outgoing RN, rounds made. Patient resting in supine position in bed, arousable, calm. No SOB/pain/NV. IVF infusing to RAC as ordered, site asymptomatic. Patient up to BSC, voids yellow clear urine. Call light in reach, bed in lowest position. Will continue to monitor.
[2018-09-04 08:00] VITALS: BP 121/69
[2018-09-04] MEDS: Meropenem 1 GM in NS 55 ML IVPB SCH ×2 (08:52→21:43)
[2018-09-04] MEDS: Irbesartan 150mg tablet ORAL SCH (08:54)
[2018-09-04] MEDS: Losartan 50mg tab ORAL SCH (08:55)
[2018-09-04] MEDS: metFORMIN 500mg tab ORAL SCH ×2 (08:55→18:16)
[2018-09-04] MEDS ORDERED: 1/2 NS 1000ml IV ONE (10:48)
--- NOTE | 2018-09-04 11:44 | Infectious Diseases Prog Note ---
Assessment/Plan Assessment/Plan A 1. klebsiella UTI, MDR 2. diabetes mellitus 3. hypertension P 1. continue meropenem X 1 day 2. will follow up cultures Subjective ROS Limited/Unobtainable: No Constitutional: Reports: no symptoms Respiratory: Reports: no symptoms Cardiovascular: Reports: no symptoms Gastrointestinal/Abdominal: Reports: other - occaional pain Genitourinary: Reports: no symptoms Allergies: Coded Allergies: PENICILLINS (Verified Allergy, Unknown, 08/29/18) Objective Vital Signs Last 24 Hour Vital Signs Date Time Temp Pulse Resp B/P (MAP) Pulse Ox O2 Delivery O2 Flow Rate FiO2 09/04/18 09:00 Room Air 09/04/18 08:55 121/69 09/04/18 08:54 121/69 09/04/18 08:54 73 121/69 09/04/18 08:00 97.8 73 20 121/69 (86) 91 09/04/18 04:00 97.4 59 18 129/57 (81) 95 09/04/18 00:00 97.5 68 18 121/46 (71) 96 09/03/18 21:00 Room Air 09/03/18 20:00 98.6 75 19 129/71 (90) 98 09/03/18 16:00 98.0 71 20 122/61 (81) 92 09/03/18 12:00 97.9 70 20 114/65 (81) 92 Height (Feet): 5 Height (Inches): 5.00 Weight (Pounds): 149 General Appearance: no acute distress HEENT: mucous membranes moist Respiratory/Chest: lungs clear Cardiovascular: normal rate Abdomen: soft, non tender Extremities: no edema Neurologic/Psychiatric: alert, oriented x 3, responsive Current Medications Medications (Trade) Dose Ordered Sig/Christina Route PRN Reason Start Time Stop Time Status Last Admin Dose Admin Acetaminophen/ Codeine Phosphate (Tylenol #3) 1 tab Q4H PRN ORAL Severe Pain (Pain Scale 7-10) 08/30/18 07:15 09/06/18 07:14 Amlodipine Besylate (Norvasc) 2.5 mg DAILY ORAL 08/30/18 09:00 09/29/18 08:59 09/04/18 08:54 Atorvastatin Calcium (Lipitor) 40 mg BEDTIME ORAL 08/30/18 21:00 09/29/18 20:59 09/03/18 21:17 Clopidogrel Bisulfate (Plavix) 75 mg DAILY ORAL 08/30/18 09:00 09/29/18 08:59 09/04/18 08:53 Dextrose (Dextrose 50%) 25 ml Q30M PRN IV Hypoglycemia 08/30/18 07:15 09/29/18 07:14 Dextrose (Dextrose 50%) 50 ml Q30M PRN IV Hypoglycemia 08/30/18 07:15 09/29/18 07:14 Gabapentin (Neurontin) 300 mg BEDTIME ORAL 08/30/18 21:00 09/29/18 20:59 09/03/18 21:17 Irbesartan (Avapro) 300 mg DAILY ORAL 08/30/18 09:00 09/29/18 08:59 09/04/18 08:54 Losartan Potassium (Cozaar) 100 mg DAILY ORAL 08/30/18 09:00 09/29/18 08:59 09/04/18 08:55 Meropenem 1 gm/ Sodium Chloride 55 ml @ 110 mls/hr Q12HR IVPB 08/30/18 09:00 09/05/18 23:59 09/04/18 08:52 Metformin HCl (Glucophage) 1,000 mg BID ORAL 09/02/18 09:00 09/29/18 08:59 09/04/18 08:55 Sitagliptin Phosphate (Januvia) 50 mg ACBREAKFAST ORAL 08/30/18 08:00 09/29/18 07:59 09/04/18 06:24 Sodium Chloride 1,000 ml @ 60 mls/hr [id number] IV 08/30/18 07:15 09/29/18 07:14 09/03/18 21:18 Harsh Srinivasan MD Sep 04, 2018 11:44
[2018-09-04 12:00] VITALS: BP 146/82
--- NOTE | 2018-09-04 13:10 | NUR ---
NURSE NOTES: Patient denies pain. IVF discontinued as ordered. DIANE jensen remains in place for IV antibiotics. Patient to ambulate with assist in halls. Last BM today 09/04/2018. Will continue to monitor.
[2018-09-04 16:00] VITALS: BP 144/77
--- NOTE | 2018-09-04 17:24 | Nephrology Progress Note ---
Assessment/Plan Assessment 1. Urinary tract infection with ESBL. 2. Diabetes. 3. Hypertension. 4. History of CAD. 5. Dyslipidemia. Plan plan continue imipenem for total of 7 days continue current med Subjective Subjective feeling better today suprapubic pain has improved Objective Objective Last 24 Hour Vital Signs Date Time Temp Pulse Resp B/P (MAP) Pulse Ox O2 Delivery O2 Flow Rate FiO2 09/04/18 16:00 97.6 75 20 144/77 (99) 97 09/04/18 12:00 97.6 68 20 146/82 (103) 98 09/04/18 09:00 Room Air 09/04/18 08:55 121/69 09/04/18 08:54 121/69 09/04/18 08:54 73 121/69 09/04/18 08:00 97.8 73 20 121/69 (86) 91 09/04/18 04:00 97.4 59 18 129/57 (81) 95 09/04/18 00:00 97.5 68 18 121/46 (71) 96 09/03/18 21:00 Room Air 09/03/18 20:00 98.6 75 19 129/71 (90) 98 Intake and Output 09/03/18 09/04/18 19:00 07:00 Intake Total 618 ml 780 ml Balance 618 ml 780 ml Intake Oral 558 ml 240 ml IV Total 60 ml 540 ml # Voids 4 3 # Bowel Movements 1 Height (Feet): 5 Height (Inches): 5.00 Weight (Pounds): 149 Objective HEAD AND NECK: No JVP. No LAD. No thyromegaly. Extraocular movement intact. Pupils are reactive to light and accommodation. LUNGS: Clear to auscultation. CARDIAC: Regular rate and rhythm. S1 and S2. No murmur. No rub. ABDOMEN: Soft, nontender, and nondistended. She is having CVA tenderness, suprapubic tenderness, and some guarding. No rebound. EXTREMITIES: No edema. No clubbing. No cyanosis. Christal Georges MD Sep 04, 2018 17:24
--- NOTE | 2018-09-04 19:35 | NUR ---
HAND-OFF: Report given to Liliya REMY.
[2018-09-04 20:00] VITALS: BP 123/67
[2018-09-04] MEDS: Atorvastatin 20mg tab ORAL SCH (21:44)
--- NOTE | 2018-09-04 22:02 | Cardiology Progress Note ---
Assessment/Plan Assessment/Plan 1. Coronary artery disease, status post percutaneous coronary intervention, stable, chest pain free. Continue with aspirin, atorvastatin and metoprolol. 2. Possible active pyelonephritis with Klebsiella pneumoniae, continue meropenem , follow up ID recs. 3. History of diabetes mellitus, continue aspirin and Plavix. 4. HTN, start HCTZ 25mg po qd, labs in am. Subjective Subjective No cardiac events. Right flank pain is subsided. Objective Last 24 Hour Vital Signs Date Time Temp Pulse Resp B/P (MAP) Pulse Ox O2 Delivery O2 Flow Rate FiO2 09/04/18 16:00 97.6 75 20 144/77 (99) 97 09/04/18 12:00 97.6 68 20 146/82 (103) 98 09/04/18 09:00 Room Air 09/04/18 08:55 121/69 09/04/18 08:54 121/69 09/04/18 08:54 73 121/69 09/04/18 08:00 97.8 73 20 121/69 (86) 91 09/04/18 04:00 97.4 59 18 129/57 (81) 95 09/04/18 00:00 97.5 68 18 121/46 (71) 96 Intake and Output 09/03/18 09/04/18 19:00 07:00 Intake Total 618 ml 840 ml Balance 618 ml 840 ml Intake Oral 558 ml 240 ml IV Total 60 ml 600 ml # Voids 4 3 # Bowel Movements 1 Objective HEENT: Atraumatic and normocephalic. Anicteric. Pupils are equal, round, and reactive to light and accommodation. Extraocular muscles intact. NECK: JVP is less than 5 cm. No carotid bruit. Carotid upstroke is 2+ bilaterally. CARDIOVASCULAR: Normal S1 and S2. Regular rate and rhythm. No murmurs, gallops, or rubs. PMI is at fourth intercostal space in the midclavicular line. LUNGS: Clear to auscultation bilaterally. ABDOMEN: No flank tenderness. No hepatosplenomegaly. Soft. Positive bowel sounds. EXTREMITIES: No evidence of edema, clubbing, or cyanosis. Sheldon Grace MD Sep 04, 2018 22:02
--- NOTE | 2018-09-04 22:35 | NUR ---
NURSE NOTES: Patient is in bed, AAox4. VSS, no shortness of breath. IV site patent. No signs of distress. Due meds given, needs attended to. Bed low, call light within reach.
[2018-09-05] VITALS: BP 107/66
[2018-09-05 06:17] LABS: BASOPHILS % (AUTO) 1.3 % (0.0-2.0); EOSINOPHILS % (AUTO) 3.2 % (0.0-3.0); HEMATOCRIT 46.1 % (37.0-47.0); HEMOGLOBIN 15.2 G/DL (12.0-16.0); LYMPHOCYTES % (AUTO) 27.9 % (20.0-45.0); MEAN CORPUSCULAR VOLUME 91 FL (80-99); MONOCYTES % (AUTO) 8.6 % (1.0-10.0); PLATELET COUNT 152 K/UL (150-450); RED BLOOD COUNT 5.04 M/UL (4.20-5.40); RED CELL DISTRIBUTION WIDTH 12.8 % (11.6-14.8); WHITE BLOOD COUNT 4.6 K/UL (4.8-10.8)
[2018-09-05 06:37] LABS: ANION GAP 9 mmol/L (5-15); BLOOD UREA NITROGEN 13 mg/dL (7-18); CALCIUM 9.4 MG/DL (8.5-10.1); CARBON DIOXIDE 26 MMOL/L (21-32); CHLORIDE 105 MMOL/L (98-107); CREATININE 0.8 MG/DL (0.55-1.30); POTASSIUM 3.7 MMOL/L (3.5-5.1); SODIUM 140 MMOL/L (136-145)
[2018-09-05] MEDS: sitaGLIPtin 50mg tab ORAL SCH (07:04)
--- NOTE | 2018-09-05 07:46 | NUR ---
HAND-OFF: Report given to JONEL Rothman. Patient stable.
--- NOTE | 2018-09-05 07:56 | NUR ---
NURSE NOTES: Patient is in bed awake and able to verbalize needs. Patient denies pain or difficulty breathing at this time. Stable with no s/s acute distress. Patient is in good spirits. In bed in locked position and call light within reach. Will continue to monitor.
[2018-09-05 08:00] VITALS: BP 121/72
[2018-09-05] MEDS: Meropenem 1 GM in NS 55 ML IVPB SCH (08:40)
[2018-09-05] MEDS: metFORMIN 500mg tab ORAL SCH ×2 (08:40→17:48)
[2018-09-05] MEDS: Irbesartan 150mg tablet ORAL SCH (08:41)
[2018-09-05] MEDS: Losartan 50mg tab ORAL SCH (08:41)
--- NOTE | 2018-09-05 09:00 | NUR ---
NURSE NOTES: Paged Dr. Georges about Magnesium level 1.2. Patient is stable. Will continue to monitor.
--- NOTE | 2018-09-05 11:06 | Infectious Diseases Prog Note ---
Assessment/Plan Assessment/Plan antibiotics : meropenem A 1. klebsiella UTI s/p rx 2. diabetes mellitus 3. hypertension P 1. d/c meropenem 2. observe off antibiotics Subjective Constitutional: Denies: fever, chills Respiratory: Denies: shortness of breath, dry cough Gastrointestinal/Abdominal: Denies: nausea, vomiting, diarrhea Musculoskeletal: Reports: pain - decreased Allergies: Coded Allergies: PENICILLINS (Verified Allergy, Unknown, 08/29/18) Objective Vital Signs Last 24 Hour Vital Signs Date Time Temp Pulse Resp B/P (MAP) Pulse Ox O2 Delivery O2 Flow Rate FiO2 09/05/18 09:00 Room Air 09/05/18 08:41 121/72 09/05/18 08:41 121/72 09/05/18 08:40 76 121/72 09/05/18 08:00 97.6 76 18 121/72 (88) 96 09/05/18 00:00 97.9 79 17 107/66 (80) 92 09/04/18 21:00 Room Air 09/04/18 20:00 98.3 78 20 123/67 (85) 94 09/04/18 16:00 97.6 75 20 144/77 (99) 97 09/04/18 12:00 97.6 68 20 146/82 (103) 98 Height (Feet): 5 Height (Inches): 5.00 Weight (Pounds): 149 Respiratory/Chest: lungs clear Cardiovascular: normal rate, regular rhythm, no gallop/murmur Abdomen: tender - decreased in suprapubic area and right CVA Extremities: no edema Laboratory Tests Test 09/05/18 05:15 White Blood Count 4.6 K/UL (4.8-10.8) L Red Blood Count 5.04 M/UL (4.20-5.40) Hemoglobin 15.2 G/DL (12.0-16.0) Hematocrit 46.1 % (37.0-47.0) Mean Corpuscular Volume 91 FL (80-99) Mean Corpuscular Hemoglobin 30.2 PG (27.0-31.0) Mean Corpuscular Hemoglobin Concent 33.0 G/DL (32.0-36.0) Red Cell Distribution Width 12.8 % (11.6-14.8) Platelet Count 152 K/UL (150-450) Mean Platelet Volume 6.9 FL (6.5-10.1) Neutrophils (%) (Auto) 59.0 % (45.0-75.0) Lymphocytes (%) (Auto) 27.9 % (20.0-45.0) Monocytes (%) (Auto) 8.6 % (1.0-10.0) Eosinophils (%) (Auto) 3.2 % (0.0-3.0) H Basophils (%) (Auto) 1.3 % (0.0-2.0) Sodium Level 140 MMOL/L (136-145) Potassium Level 3.7 MMOL/L (3.5-5.1) Chloride Level 105 MMOL/L (98-107) Carbon Dioxide Level 26 MMOL/L (21-32) Anion Gap 9 mmol/L (5-15) Blood Urea Nitrogen 13 mg/dL (7-18) Creatinine 0.8 MG/DL (0.55-1.30) Estimat Glomerular Filtration Rate mL/min (>60) Glucose Level 96 MG/DL (74-106) Calcium Level 9.4 MG/DL (8.5-10.1) Magnesium Level 1.2 MG/DL (1.8-2.4) L Current Medications Medications (Trade) Dose Ordered Sig/Christina Route PRN Reason Start Time Stop Time Status Last Admin Dose Admin Acetaminophen/ Codeine Phosphate (Tylenol #3) 1 tab Q4H PRN ORAL Severe Pain (Pain Scale 7-10) 08/30/18 07:15 09/06/18 07:14 Amlodipine Besylate (Norvasc) 2.5 mg DAILY ORAL 08/30/18 09:00 09/29/18 08:59 09/05/18 08:40 Atorvastatin Calcium (Lipitor) 40 mg BEDTIME ORAL 08/30/18 21:00 09/29/18 20:59 09/04/18 21:44 Clopidogrel Bisulfate (Plavix) 75 mg DAILY ORAL 08/30/18 09:00 09/29/18 08:59 09/05/18 08:41 Dextrose (Dextrose 50%) 25 ml Q30M PRN IV Hypoglycemia 08/30/18 07:15 09/29/18 07:14 Dextrose (Dextrose 50%) 50 ml Q30M PRN IV Hypoglycemia 08/30/18 07:15 09/29/18 07:14 Gabapentin (Neurontin) 300 mg BEDTIME ORAL 08/30/18 21:00 09/29/18 20:59 09/04/18 21:43 Hydrochlorothiazide (Hydrodiuril) 25 mg DAILY ORAL 09/05/18 09:00 10/05/18 08:59 09/05/18 08:40 Irbesartan (Avapro) 300 mg DAILY ORAL 08/30/18 09:00 09/29/18 08:59 09/05/18 08:41 Losartan Potassium (Cozaar) 100 mg DAILY ORAL 08/30/18 09:00 09/29/18 08:59 09/05/18 08:41 Meropenem 1 gm/ Sodium Chloride 55 ml @ 110 mls/hr Q12HR IVPB 08/30/18 09:00 09/05/18 23:59 09/05/18 08:40 Metformin HCl (Glucophage) 1,000 mg BID ORAL 09/02/18 09:00 09/29/18 08:59 09/05/18 08:40 Sitagliptin Phosphate (Januvia) 50 mg ACBREAKFAST ORAL 08/30/18 08:00 09/29/18 07:59 09/05/18 07:04 Anjum Mcnally MD Sep 05, 2018 11:06
[2018-09-05 12:00] VITALS: BP 117/66
--- NOTE | 2018-09-05 12:41 | NUR ---
NURSE NOTES: Dr. Georges paged regarding Magnesium 1.2 and Completed IV antibiotics order by ID.
[2018-09-05 16:00] VITALS: BP 119/70
--- NOTE | 2018-09-05 18:00 | Cardiology Progress Note ---
Assessment/Plan Assessment/Plan 1. Coronary artery disease, status post percutaneous coronary intervention, stable, chest pain free. Continue with aspirin, atorvastatin and metoprolol. 2. Possible active pyelonephritis with Klebsiella pneumoniae, continue meropenem , follow up ID recs. 3. History of diabetes mellitus, continue aspirin and Plavix. 4. HTN, continue HCTZ 25 daily. 5. Hypomagnesemia, Magnesium sulfate 3 grams times one dose. Subjective Subjective No cardiac events. Objective Last 24 Hour Vital Signs Date Time Temp Pulse Resp B/P (MAP) Pulse Ox O2 Delivery O2 Flow Rate FiO2 09/05/18 16:00 97.9 82 20 119/70 (86) 96 09/05/18 12:00 97.6 83 18 117/66 (83) 95 09/05/18 09:00 Room Air 09/05/18 08:41 121/72 09/05/18 08:41 121/72 09/05/18 08:40 76 121/72 09/05/18 08:00 97.6 76 18 121/72 (88) 96 09/05/18 00:00 97.9 79 17 107/66 (80) 92 09/04/18 21:00 Room Air 09/04/18 20:00 98.3 78 20 123/67 (85) 94 Intake and Output 09/04/18 09/05/18 18:59 06:59 Intake Total 840 ml 320 ml Balance 840 ml 320 ml Intake Oral 480 ml 320 ml IV Total 360 ml # Voids 4 3 Laboratory Tests Test 09/05/18 05:15 White Blood Count 4.6 K/UL (4.8-10.8) L Red Blood Count 5.04 M/UL (4.20-5.40) Hemoglobin 15.2 G/DL (12.0-16.0) Hematocrit 46.1 % (37.0-47.0) Mean Corpuscular Volume 91 FL (80-99) Mean Corpuscular Hemoglobin 30.2 PG (27.0-31.0) Mean Corpuscular Hemoglobin Concent 33.0 G/DL (32.0-36.0) Red Cell Distribution Width 12.8 % (11.6-14.8) Platelet Count 152 K/UL (150-450) Mean Platelet Volume 6.9 FL (6.5-10.1) Neutrophils (%) (Auto) 59.0 % (45.0-75.0) Lymphocytes (%) (Auto) 27.9 % (20.0-45.0) Monocytes (%) (Auto) 8.6 % (1.0-10.0) Eosinophils (%) (Auto) 3.2 % (0.0-3.0) H Basophils (%) (Auto) 1.3 % (0.0-2.0) Sodium Level 140 MMOL/L (136-145) Potassium Level 3.7 MMOL/L (3.5-5.1) Chloride Level 105 MMOL/L (98-107) Carbon Dioxide Level 26 MMOL/L (21-32) Anion Gap 9 mmol/L (5-15) Blood Urea Nitrogen 13 mg/dL (7-18) Creatinine 0.8 MG/DL (0.55-1.30) Estimat Glomerular Filtration Rate mL/min (>60) Glucose Level 96 MG/DL (74-106) Calcium Level 9.4 MG/DL (8.5-10.1) Magnesium Level 1.2 MG/DL (1.8-2.4) L Objective HEENT: Atraumatic and normocephalic. Anicteric. Pupils are equal, round, and reactive to light and accommodation. Extraocular muscles intact. NECK: JVP is less than 5 cm. No carotid bruit. Carotid upstroke is 2+ bilaterally. CARDIOVASCULAR: Normal S1 and S2. Regular rate and rhythm. No murmurs, gallops, or rubs. PMI is at fourth intercostal space in the midclavicular line. LUNGS: Clear to auscultation bilaterally. ABDOMEN: No flank tenderness. No hepatosplenomegaly. Soft. Positive bowel sounds. EXTREMITIES: No evidence of edema, clubbing, or cyanosis. Sheldon Grace MD Sep 05, 2018 17:59
--- NOTE | 2018-09-05 18:57 | Nephrology Progress Note ---
Assessment/Plan Assessment 1. Urinary tract infection with ESBL. 2. Diabetes. 3. Hypertension. 4. History of CAD. 5. Dyslipidemia. 6.hypomagnesemia Plan plan continue imipenem for total of 7 days continue current med replace mg d/c in am Subjective Constitutional: Reports: no symptoms HEENT: Reports: no symptoms Genitourinary: Reports: no symptoms Neurologic/Psychiatric: Reports: no symptoms Subjective feeling better today Objective Objective Last 24 Hour Vital Signs Date Time Temp Pulse Resp B/P (MAP) Pulse Ox O2 Delivery O2 Flow Rate FiO2 09/05/18 16:00 97.9 82 20 119/70 (86) 96 09/05/18 12:00 97.6 83 18 117/66 (83) 95 09/05/18 09:00 Room Air 09/05/18 08:41 121/72 09/05/18 08:41 121/72 09/05/18 08:40 76 121/72 09/05/18 08:00 97.6 76 18 121/72 (88) 96 09/05/18 00:00 97.9 79 17 107/66 (80) 92 09/04/18 21:00 Room Air 09/04/18 20:00 98.3 78 20 123/67 (85) 94 Intake and Output 09/04/18 09/05/18 18:59 06:59 Intake Total 840 ml 320 ml Balance 840 ml 320 ml Intake Oral 480 ml 320 ml IV Total 360 ml # Voids 4 3 Laboratory Tests 09/05/18 05:15: White Blood Count 4.6L, Red Blood Count 5.04, Hemoglobin 15.2, Hematocrit 46.1, Mean Corpuscular Volume 91, Mean Corpuscular Hemoglobin 30.2, Mean Corpuscular Hemoglobin Concent 33.0, Red Cell Distribution Width 12.8, Platelet Count 152, Mean Platelet Volume 6.9, Neutrophils (%) (Auto) 59.0, Lymphocytes (%) (Auto) 27.9, Monocytes (%) (Auto) 8.6, Eosinophils (%) (Auto) 3.2H, Basophils (%) (Auto ) 1.3, Sodium Level 140, Potassium Level 3.7, Chloride Level 105, Carbon Dioxide Level 26, Anion Gap 9, Blood Urea Nitrogen 13, Creatinine 0.8, Estimat Glomerular Filtration Rate , Glucose Level 96, Calcium Level 9.4, Magnesium Level 1.2L Height (Feet): 5 Height (Inches): 5.00 Weight (Pounds): 149 Objective HEAD AND NECK: No JVP. No LAD. No thyromegaly. Extraocular movement intact. Pupils are reactive to light and accommodation. LUNGS: Clear to auscultation. CARDIAC: Regular rate and rhythm. S1 and S2. No murmur. No rub. ABDOMEN: Soft, nontender, and nondistended. She is having CVA tenderness, suprapubic tenderness, and some guarding. No rebound. EXTREMITIES: No edema. No clubbing. No cyanosis. Christal Georges MD Sep 05, 2018 18:57
--- NOTE | 2018-09-07 09:56 | Discharge Summary ---
Discharge Summary Discharge Summary _ DATE OF ADMISSION: DATE OF ADMISSION: 08/30/2018 DATE OF DISCHARGE: 09/05/2018 DISCHARGED BY: REASON FOR ADMISSION: 82 years old female with past medical history of hypertension, coronary artery disease, status post stent placement, diabetes mellitus, failed outpatient treatment for urinary tract infection. Patient completed treatment of urinary tract infection with Levaquin, but still reported severe right flank pain . Upon evaluation patient was afebrile , vital signs were stable. CT of the abdomen and pelvis revealed no evidence of acute urinary stone disease or obstructive uropathy. Laboratory workup was unremarkable. Patient subsequently admitted for management of UTI/pyelonephritis. CONSULTANTS: kindergarten teacher Dr. Bob ID specialist Dr. Mcnally [facility] COURSE: Patient admitted to medical surgical floor. Patient started on meropenem. ID consult was requested. Prior urine culture revealed Klebsiella pneumonia susceptible to ertapenem, gentamicin and meropenem. Urine culture on this admission revealed Klebsiella pneumonia ESBL . Antibiotic regimen was directed by ID specialist. Pain management was addressed as needed. DVT prophylaxis provided. Cardiology closely followed . Antiplatelet therapy provided. Statin and beta-yuliet were continued. Blood pressure was managed with current regimen and remained stable. Blood sugar was managed with metformin, Januvia and sliding scale of insulin as needed. Hemoglobin A1c 7 , at goal. Renal parameters and electrolytes were closely monitored. Magnesium was replaced. Nephrotoxins were avoided. Patient completed treatment of IV antibiotic while in the hospital. No leukocytosis , no fevers. Patient was stable for discharge home. FINAL DIAGNOSES: Acute pyelonephritis/UTI with Klebsiella pneumonia ESBL -s/p treatment Diabetes mellitus Coronary artery disease , status post percutaneous coronary intervention -stable Hypertension Dyslipidemia DISCHARGE MEDICATIONS: List of medication was sent with patient DISCHARGE INSTRUCTIONS: Patient was discharged home. Follow up with primary care provider in one week. I have been assigned to dictate discharge summary for this account. I was not involved in the patient's management. Juanita Vergara NP Sep 07, 2018 09:56
== END 2018-09-05 22:03 | disposition home or self-care (01) | DRG 690 ==
LOC: EMR 22:48 → 3E 08-30 00:43 → EDBEDREQ 08-30 01:14 → 3E 08-30 01:46
DX: N10 Acute pyelonephritis (principal); B96.1 Klebsiella pneumoniae [K. pneumoniae] as the cause of diseases classified elsewhere; Z16.12 Extended spectrum beta lactamase (ESBL) resistance; E11.9 Type 2 diabetes mellitus without complications; I25.10 Atherosclerotic heart disease of native coronary artery without angina pectoris; I10 Essential (primary) hypertension; E78.5 Hyperlipidemia, unspecified; E83.42 Hypomagnesemia; Z88.0 Allergy status to penicillin; Z98.61 Coronary angioplasty status
CPT/HCPCS: 36415; 74176; 76770; 80048; 80053; 81003; 82962; 83036; 83690; 83735; 85025; 87086; 87181; 96365; 96375; 99285; J1815